=== PATIENT | female | born 1965 | race Caucasian/White ===

== ENCOUNTER 2021-08-02 14:16 | Outpatient (CLI) | payer BC | END 2021-08-02 14:17 | disposition home or self-care (01) | LOC: CSHMRI 14:16 | PROVIDERS: ATTEND Podiatrist Foot & Ankle Surgery | DX: M25.372 Other instability, left ankle (principal); S92.025A Nondisplaced fracture of anterior process of left calcaneus, initial encounter for closed fracture; M67.874 Other specified disorders of tendon, left ankle and foot ==

== ENCOUNTER 2024-01-28 21:15 | Emergency (ER) | payer BC ==
[2024-01-28 22:10] LABS: Glucose 97 mg/dL (70-105)
== END 2024-01-28 22:08 | disposition home or self-care (01) ==
LOC: CSHERS 21:15
DX: G62.9 Polyneuropathy, unspecified (principal)
CPT/HCPCS: 36416; 82947; 93005